=== PATIENT | female | born 2000 | race Caucasian/White ===

== ENCOUNTER 2021-05-02 15:04 | Emergency (ER) | payer OTHER ==
[~2021-05-02] VITALS: Ht 160 cm; Wt 65.3 kg
[2021-05-02 15:25] VITALS: BP 139/109
--- NOTE | 2021-05-02 15:48 | NUR ---
PATIENT AMBULATED TO BED 07
[2021-05-02] MEDS ORDERED: ACYC400T14 PO (15:59)
[2021-05-02] MEDS ORDERED: PRED20TA5 PO (15:59)
--- NOTE | 2021-05-02 16:06 | NUR ---
21yo f bib mother c/o right-sided facial drooping and numbness since yesterday morning. pt also with neck and shoulder stiffness. pt also reports numbing of her tongue upon waking up 2 days ago. denies pain. denies weakness. denies any trauma. took aleve yesterday which provided no relief. pmh: none meds: none nka
--- NOTE | 2021-05-02 16:33 | NUR ---
Patient taken to CT scan via wheelchair by tech.
[2021-05-02 17:20] VITALS: BP 139/109
--- NOTE | 2021-05-02 17:20 | NUR ---
Patient discharged with v/s stable. Written and verbal after care instructions given and explained. Patient alert, oriented and verbalized understanding of instructions. Ambulatory with steady gait. All questions addressed prior to discharge. ID band removed. Patient advised to follow up with PMD. Rx of ACYCLOVIR AND PREDNISONE given. Patient educated on indication of medication including possible reaction and side effects. Opportunity to ask questions provided and answered.
== END 2021-05-02 17:20 | disposition home or self-care (01) ==
LOC: MED 15:04
DX: R29.810 Facial weakness (principal); R20.0 Anesthesia of skin; F41.9 Anxiety disorder, unspecified; Z79.899 Other long term (current) drug therapy
CPT/HCPCS: 70450; 81025; 99284

== ENCOUNTER 2021-05-05 17:00 | Emergency (ER) | payer OTHER ==
[~2021-05-05] VITALS: Ht 160 cm; Wt 63.5 kg
[~2021-05-05 17:00] MED LIST: ACYC400T14 PO; PRED20TA5 PO
[2021-05-05 17:13] VITALS: BP 138/83
--- NOTE | 2021-05-05 18:17 | NUR ---
PT AMBULATORY TO BED
--- NOTE | 2021-05-05 18:28 | NUR ---
BIB SELF FOR RECHECK. SEN HERE 3 DAYS AGO FOR SOTO PALSY. C/O MUNSON, R EAR PAIN, R LOWER FACIAL DROOPX 4 DAYS. PMH: ANXIETY
[2021-05-05] MEDS ORDERED: [UNRECOGNIZED DRUG - OTHER] (18:32)
[2021-05-05] MEDS ORDERED: ARTOS OP (18:32)
[2021-05-05 18:40] VITALS: BP 138/83
--- NOTE | 2021-05-05 18:41 | NUR ---
Patient discharged with v/s stable. Written and verbal after care instructions given and explained. Patient alert, oriented and verbalized understanding of instructions. Ambulatory with steady gait. All questions addressed prior to discharge. ID band removed. Patient advised to follow up with PMD. Rx of HYPROMELLOSE given. Patient educated on indication of medication including possible reaction and side effects. Opportunity to ask questions provided and answered.
== END 2021-05-05 18:41 | disposition home or self-care (01) ==
LOC: MED 17:00
DX: G51.0 Bell's palsy (principal); R51.9 Headache, unspecified; R03.0 Elevated blood-pressure reading, without diagnosis of hypertension; Z79.899 Other long term (current) drug therapy
CPT/HCPCS: 99282

== ENCOUNTER 2021-05-09 11:01 | Emergency (ER) | payer OTHER ==
[~2021-05-09] VITALS: Ht 160 cm; Wt 65.3 kg
[~2021-05-09 11:01] MED LIST changes: +ARTOS OP; +[UNRECOGNIZED DRUG - OTHER]
[2021-05-09 11:08] VITALS: BP 123/73
--- NOTE | 2021-05-09 11:13 | NUR ---
Patient ambulated to bed 09 with steady/even gait.
--- NOTE | 2021-05-09 11:33 | NUR ---
presents to ED for medication refill. Patients states she was seen here and Dx with ileana verdugo, stating she ran out of her prescribed medications. Patient states she attempted to see her PCP but was told she cannot be seen for at least 2 weeks. Patient denies pain, states she feels pressure, denies taking anything besides prescribed medications.
[2021-05-09 12:33] VITALS: BP 123/73
--- NOTE | 2021-05-09 12:34 | NUR ---
Patient discharged with v/s stable. Written and verbal after care instructions given and explained. Patient verbalized understanding. Ambulatory with steady gait. All questions addressed prior to discharge. Advised to follow up with PMD. Patient provided work note until 05/11/21
== END 2021-05-09 12:34 | disposition home or self-care (01) ==
LOC: MED 11:01
DX: G51.0 Bell's palsy (principal); Z79.899 Other long term (current) drug therapy
CPT/HCPCS: 99281

== ENCOUNTER 2024-04-09 11:55 | Emergency (ER) | payer OTHER ==
[~2024-04-09] VITALS: Ht 162.6 cm; Wt 74.8 kg
[2024-04-09 12:16] VITALS: BP 148/112; PULSE 96; RESP 18; TEMP 98.2; O2SAT 100
[2024-04-09] MEDS ORDERED: CAPS1ADH5 TP (12:57)
[2024-04-09] MEDS ORDERED: IBUP-2213 PO (12:57)
[2024-04-09] MEDS ORDERED: HYDR25TA32 PO (13:34)
== END 2024-04-09 13:47 | disposition home or self-care (01) ==
LOC: MED 11:55
DX: S46.811A Strain of other muscles, fascia and tendons at shoulder and upper arm level, right arm, initial encounter (principal); I10 Essential (primary) hypertension; Z76.0 Encounter for issue of repeat prescription; Z79.899 Other long term (current) drug therapy; V49.88XA Car occupant (driver) (passenger) injured in other specified transport accidents, initial encounter; Y93.89 Activity, other specified; Y92.89 Other specified places as the place of occurrence of the external cause; Y99.8 Other external cause status
CPT/HCPCS: 73030; 81025; 99283